=== PATIENT | female | born 1990 | race Caucasian/White ===

== ENCOUNTER 2019-08-26 12:39 | Outpatient (CLI) | payer OTHER ==
[2019-08-26 14:19] LABS: URINE AMPHETAMINES SCREEN NEGATIVE; URINE BARBITURATES SCREEN NEGATIVE; URINE BENZODIAZEPINES SCREEN NEGATIVE; URINE COCAINE SCREEN NEGATIVE; URINE MARIJUANA (THC) SCREEN NEGATIVE; URINE METHADONE SCREEN NEGATIVE; URINE PHENCYCLIDINE SCREEN NEGATIVE
--- NOTE | 2019-08-26 14:33 | RADIOLOGY REPORT (SQ) ---
EXAM DESCRIPTION: U/S OB LIMITED IMAGES COMPLETED DATE/TIME: 08/26/2019 2:19 pm REASON FOR STUDY: placenta check cervical length bleeding dog hit ab COMPARISON: None. TECHNIQUE: Limited transabdominal grayscale ultrasound for evaluation of specific requested obstetri kwesi parameters. LIMITATIONS: None. FINDINGS: CERVICAL LENGTH: 3.3 cm. Closed. LVP: 8.6 x 5.3 cm. FHR: 160 beats per minute. PRESENTATION: Cephalic. PLACENTA: Anterior location. ANATOMY: Not assessed OTHER: Estimated gestational age is 20 weeks 6 days. On power Doppler images there is an abundance o f flow along the margin of the placenta. IMPRESSION: LIMITED OBSTETRICAL ULTRASOUND WITH MEASURED PARAMETERS DELINEATED ABOVE. Trimester of : Second trimester - 13 weeks 1 day to 27 weeks 6 days. TECHNICAL DOCUMENTATION: JOB ID: [id number] 2010 [employer]- All Rights Reserved Reading location - IP/workstation name: [email or web address]
[2019-08-26 15:13] LABS: APPEARANCE,URINE SLIGHTLY-CLOUDY; BILIRUBIN,URINE NEGATIVE (NEGATIVE); COLOR,URINE YELLOW; GLUCOSE, URINE NEGATIVE (NEGATIVE); KETONES,URINE TRACE mg/dL (NEGATIVE); LEUKOCYTE ESTERASE,URINE NEGATIVE (NEGATIVE); NITRITE,URINE NEGATIVE (NEGATIVE); PROTEIN,URINE NEGATIVE (NEGATIVE); URINE SPECIFIC GRAVITY 1.021; UROBILINOGEN,URINE NEGATIVE mg/dL (<2.0)
== END 2019-08-26 15:28 | disposition home or self-care (01) ==
LOC: LC 12:39
PROVIDERS: ATTEND Student in an Organized Health Care Education/Training Program
DX: O46.92 Antepartum hemorrhage, unspecified, second trimester (principal); Z3A.20 20 weeks gestation of pregnancy
CPT/HCPCS: 76815; 80307; 81001